=== PATIENT | female | born 1975 | race Caucasian/White ===

== ENCOUNTER → 2018-08-09 | Outpatient (CLI) | payer OTHER ==
[~2018-08-09] MED LIST: IOHEXOL 300 MG/ML 100ML VIAL. INT UTERIN ONE
--- NOTE | 2018-08-09 12:26 | RAD ---
Hysterosalpingogram, 08/09/2018: History: Previous tubal ligation, check tubal occlusions Following cleansing of the cervix with Betadine the cervical os was cannulated with a balloon occlusion catheter. The balloon was inflated in the cervical canal. Contrast was injected under fluoroscopic observation. 1.8 minutes of fluoroscopy time was utilized. Eleven static and dynamic fluoroscopic sequences were recorded. The patient tolerated the procedure well and left the department in good condition. Findings: The uterine cavity is smooth. Both fallopian tubes are occluded. There is no intraperitoneal extension of contrast. IMPRESSION: Occluded fallopian tubes.
== END | disposition home or self-care (01) ==
LOC: RAD 10:07
PROVIDERS: ATTEND Obstetrics & Gynecology
DX: N97.1 Female infertility of tubal origin (principal); M19.90 Unspecified osteoarthritis, unspecified site; Z79.899 Other long term (current) drug therapy; Z87.891 Personal history of nicotine dependence
CPT/HCPCS: 58340; 74740